=== PATIENT | male | born 1995 | race Two or more races ===

== ENCOUNTER 2018-07-11 06:48 | Emergency (ER) | payer SELFPAY ==
[2018-07-11] MEDS ORDERED: Ketorolac 60 MG/2 ML SDV IM ONE (07:25)
--- NOTE | 2018-07-11 07:27 | EDM.PDOC ---
ED HPI GENERAL MEDICAL PROBLEM - General Chief Complaint: Respiratory Problem Stated Complaint: UPPER BACK PAIN Time Seen by Provider: 07/11/18 07:25 Source of Information: Reports: Patient History Limitations: Reports: No Limitations - History of Present Illness INITIAL COMMENTS - FREE TEXT/NARRATIVE: pt arrived with pain on the left side post by the shoulder blade. Onset: Today Duration: Hour(s): Location: Reports: Back Associated Symptoms: Reports: Other (pain by the left scapula) Upper Back Pain Score (Numeric/FACES): 10 - Related Data Allergies Allergy/AdvReac Type Severity Reaction Status Date / Time No Known Allergies Allergy Verified 07/11/18 07:05 Home Meds: Home Meds NK [No Known Home Meds] 07/11/18 [History] Past Medical History - Past Health History Medical/Surgical History: Denies Medical/Surgical History Endocrine/Metabolic History: Reports: Obesity/BMI 30+ - Past Surgical History Head Surgeries/Procedures: Reports: None Endocrine Surgical History: Reports: None Social & Family History - Tobacco Use Smoking Status *Q: Never Smoker Second Hand Smoke Exposure: No - Caffeine Use Caffeine Use: Reports: Soda - Recreational Drug Use Recreational Drug Use: No ED ROS GENERAL - Review of Systems Review Of Systems: See Below Constitutional: Reports: No Symptoms HEENT: Reports: No Symptoms Respiratory: Reports: No Symptoms, Other (pt did have a bad cough last week. ) Cardiovascular: Reports: No Symptoms Endocrine: Reports: No Symptoms GI/Abdominal: Reports: No Symptoms : Reports: No Symptoms Musculoskeletal: Reports: Other ( pain by the left scapula. ) Skin: Reports: No Symptoms Neurological: Reports: No Symptoms ED EXAM, GENERAL - Physical Exam Exam: See Below Free Text/Narrative:: pt woke up with severe pain by the left scapula. He hurts when he takes a deep breath and if he moves. He has not fallen or injured himself. Exam Limited By: No Limitations General Appearance: Alert, Moderate Distress Ears: Normal TMs Nose: Normal Inspection Throat/Mouth: Normal Inspection Head: Atraumatic Neck: Normal Inspection Respiratory/Chest: Other (pain with deep breathing. ) Cardiovascular: Regular Rate, Rhythm GI/Abdominal: Soft, Non-Tender (Male) Exam: Deferred Rectal (Males) Exam: Deferred Back Exam: Normal Inspection Extremities: Normal Inspection Neurological: Alert, Oriented Course - Vital Signs Last Recorded V/S: Last Vital Signs Temp 35.8 C 07/11/18 07:15 Pulse 51 L 07/11/18 07:15 Resp 16 07/11/18 07:15 BP 126/62 07/11/18 07:15 Pulse Ox 99 07/11/18 07:15 - Orders/Labs/Meds Orders: Active Orders 24 hr Category Date Time Status Chest 2V [CR] Stat Exams 07/11/18 07:24 Taken Labs: Laboratory Tests 07/11/18 Range/Units 07:24 WBC 5.3 (4.5-11.0) K/uL RBC 4.65 (4.30-5.90) M/uL Hgb 13.5 (12.0-15.0) g/dL Hct 41.0 (40.0-54.0) % MCV 88 (80-98) fL MCH 29 (27-31) pg MCHC 33 (32-36) % Plt Count 315 (150-400) K/uL Neut % (Auto) 50 (36-66) % Lymph % (Auto) 40 (24-44) % [place] % (Auto) 8 H (2-6) % Eos % (Auto) 2 (2-4) % Baso % (Auto) 1 (0-1) % Meds: Medications Discontinued Medications Generic Name Dose Route Start Last Admin Trade Name Nikhil PRN Reason Stop Dose Admin Ketorolac Tromethamine 60 mg 07/11/18 07:25 07/11/18 07:30 Toradol IM 07/11/18 07:26 60 mg ONETIME ONE Administration - Re-Assessments/Exams Free Text/Narrative Re-Assessment/Exam: 07/11/18 08:01 chest xray did not reveal a infiltrate. He had a normal wbc. He was given torodol 60 mg im. He was given percocet 5/325. Departure - Departure Time of Disposition: 07:49 Disposition: Home, Self-Care 01 Condition: Fair Clinical Impression: Chest wall pain, Pleuritic chest pain - Discharge Information Referrals: PCP,None [Primary Care Provider] - Forms: ED Department Discharge Care Plan Goals: moist warm heat to the area, flexeril 10 mg at hs, motrin 600mg qid, , tylenol 3 1 tab q6h for severe pain. rtc if problems. - My Orders Last 24 Hours: My Active Orders 07/11/18 07:24 Chest 2V [CR] Stat - Assessment/Plan Last 24 Hours: My Active Orders 07/11/18 07:24 Chest 2V [CR] Stat
[2018-07-11] MEDS ORDERED: Acetaminophen/oxyCODONE 325-5 MG Tab PO ONE (07:54)
--- NOTE | 2018-07-11 09:00 | CR ---
CHEST: 2 view CLINICAL HISTORY:Back pain COMPARISON:None FINDINGS: The heart size, pulmonary vascular and hilar structures are normal. No infiltrate effusion or pneumothorax is seen. IMPRESSION: No acute cardiopulmonary process.
== END 2018-07-11 08:05 | disposition home or self-care (01) ==
LOC: JP.ED 06:48
DX: R07.1 Chest pain on breathing (principal)
CPT/HCPCS: 36415; 71046; 85025; 96372; 99284; A9270; J1885